=== PATIENT | male | born 1990 | race Caucasian/White ===

== ENCOUNTER 2018-02-11 13:35 | Inpatient (IN) | payer OTHER ==
[2018-02-11 13:48] VITALS: BMI 31.3
--- NOTE | 2018-02-11 14:56 | PDOC ---
History of Present Illness - General History Source: Patient Exam Limitations: No Limitations - History of Present Illness Initial Comments: 02/11/18 15:12 The patient is a 27 year old male, with a significant past medical history of cataracts, who presents to the emergency department with, rapid onset decreased vision of the right eye and total blindness of the left eye. The patient describes his symptoms as blurred vision only being able to see shapes and colors and progressively decreasing for the past two weeks. As per patient, he was diagnosed with blurred vision of the left eye and cataracts in [place] by a doctor of of an unknown name to whom informed him he needed to have surgery. As per patient, his insurance was only approved yesterday and upon calling the social service technician she advised him to come into the emergency department for further treatment. The patient has a strong family history of cataracts at a young age. He denies any injury to the eye. He denies any foreign body to the eye. He denies taking any medications or supplements. He denies a history of diabetes. He denies any recent fevers, chills, headache or dizziness. He denies any recent nausea, vomit, diarrhea or constipation. He denies any recent chest pain or shortness of breath. He denies any recent dysuria, frequency, urgency or hematuria. Allergies: NKA Past surgical history: None reported. Social History: Nonsmoker. Denies EtOH use and recreational drug use. <Nancy Gustafson - Last Filed: 02/11/18 15:36> - General History Source: Patient Exam Limitations: No Limitations <Smiley Anderson - Last Filed: 02/11/18 15:48> - General Chief Complaint: Blurry Vision Stated Complaint: EYE PROBLEM Time Seen by Provider: 02/11/18 14:09 Past History <Nancy Gustafson - Last Filed: 02/11/18 15:36> - Past Medical History COPD: No Other medical history: DENIES. - Suicide/Smoking/Psychosocial Hx Smoking History: Never smoked <Smiley Anderson - Last Filed: 02/11/18 15:48> - Past Medical History Allergies/Adverse Reactions: Allergies Allergy/AdvReac Type Severity Reaction Status Date / Time No Known Allergies Allergy Verified 02/11/18 13:44 Home Medications: Ambulatory Orders NK [No Known Home Medication] 02/11/18 Review of Systems - Review of Systems Able to Perform ROS?: Yes Comments:: 02/11/18 15:22 CONSTITUTIONAL: Absent: fever, no chills, no fatigue EYES: Present: Visual change of the right eye. ENT: Absent: ear pain, no sore throat CARDIOVASCULAR: Absent: chest pain, no palpitations RESPIRATORY: Absent: cough, no SOB GI: Absent: abdominal pain, no nausea, no vomiting, no constipation, no diarrhea GENITOURINARY: Absent: dysuria, no frequency, no hematuria MUSKULOSKELETAL: Absent: back pain, no arthralgia, no myalgia SKIN: Absent: rash NEURO: Absent: headache All Other Systems: Reviewed and Negative <Nancy Gustafson - Last Filed: 02/11/18 15:36> *Physical Exam - Vital Signs Last Vital Signs Temp Pulse Resp BP Pulse Ox 98.4 F 70 19 130/66 99 02/11/18 13:44 02/11/18 13:44 02/11/18 13:44 02/11/18 13:44 02/11/18 13:44 - Physical Exam Comments: 02/11/18 15:23 GENERAL: Well-appearing, well-nourished. No apparent distress. (+)HEENT: + Bilateral cataracts. Unable to perform visual acuity test because unable to see the chart. Normocephalic, atraumatic. CARDIOVASCULAR: Normal S1, S2. Regular rate and rhythm. PULMONARY: Clear to auscultation bilaterally. ABDOMEN: Soft, non-distended, non-tender. EXTREMITIES: Normal ROM in all four extremities. No gross deformities. SKIN: Warm, dry. No rash NEUROLOGICAL: No focal neurological deficits. <Nancy Gustafson - Last Filed: 02/11/18 15:36> - Vital Signs Last Vital Signs Temp Pulse Resp BP Pulse Ox 98.4 F 70 19 130/66 99 02/11/18 13:44 02/11/18 13:44 02/11/18 13:44 02/11/18 13:44 02/11/18 13:44 <Smiley Anderson - Last Filed: 02/11/18 15:48> Medical Decision Making - Medical Decision Making 02/11/18 15:36 2:40pm Call placed to Dr. Gil's, call person for neurology, answering service, awaiting call back. 2:51pm Call returned from Dr. Antonio, associate of Dr. Gil, case was discussed. 2:55pm Call placed to Dr. Sosa for admission, case was discussed. <Nancy Gustafson - Last Filed: 02/11/18 15:36> - Medical Decision Making 02/11/18 15:[address] Antonio from neurology who wants to admit patient to rule out medical causes of sudden blindness other than cataracts. Admit patient to [facility] service. Dr. Antonio to consult. Discussed case with Dr. Swanson, attending in the Emergency Department. Patient to be admitted for 24 -hour observation. Report to Yasmine KIM. <Smiley Anderson - Last Filed: 02/11/18 15:48> *DC/Admit/Observation/Transfer - Attestations Scribe Attestion: 02/11/18 15:35 Documentation prepared by Nancy Gustafson, acting as medical support assistant for Smiley Anderson, RUBENS. <Nancy Gustafson - Last Filed: 02/11/18 15:36> - Discharge Dispostion Admit: Yes <Smiley Anderson - Last Filed: 02/11/18 15:48> Diagnosis at time of Disposition: Blindness of both eyes - Referrals Referrals: Neil Sosa MD [Staff Physician] - Lelo Antonio MD [Staff Physician] -
--- NOTE | 2018-02-11 16:57 | HP ---
Admitting History and Physical - Primary Care Physician PCP: Neil Sosa - Admission History of Present Illness: 27 year old male, with a significant past medical history of cataracts, who presents to the emergency department with, rapid onset decreased vision of the right eye and total blindness of the left eye. The patient describes his symptoms as blurred vision only being able to see shapes and colors and progressively decreasing for the past two weeks. As per patient, he was diagnosed with blurred vision of the left eye and cataracts in [place] by a doctor of of an unknown name to whom informed him he needed to have surgery. As per patient, his insurance was only approved yesterday and upon calling the high school social studies teacher she advised him to come into the emergency department for further treatment. The patient has a strong family history of cataracts at a young age. He denies any injury to the eye. He denies any foreign body to the eye. He denies taking any medications or supplements. He denies a history of diabetes. He denies any recent fevers, chills, headache or dizziness. He denies any recent nausea, vomit, diarrhea or constipation. He denies any recent chest pain or shortness of breath. He denies any recent dysuria, frequency, urgency or hematuria. - Smoking History Smoking history: Never smoked Home Medications - Allergies Allergies/Adverse Reactions: Allergies Allergy/AdvReac Type Severity Reaction Status Date / Time No Known Allergies Allergy Verified 02/11/18 13:44 - Home Medications Home Medications: Ambulatory Orders NK [No Known Home Medication] 02/11/18 Physical Examination Vital Signs: Vital Signs Temperature 98.4 F 02/11/18 13:44 Pulse Rate 70 02/11/18 13:44 Respiratory Rate 19 02/11/18 13:44 Blood Pressure 130/66 02/11/18 13:44 O2 Sat by Pulse Oximetry (%) 99 02/11/18 13:44 HENT: Yes: Atraumatic Problem List - Problems (1) Blind right eye Code(s): H54.40 - BLINDNESS, ONE EYE, UNSPECIFIED EYE (2) Blindness of both eyes Code(s): H54.3 - UNQUALIFIED VISUAL LOSS, BOTH EYES
[2018-02-11 18:30] LABS: BASO % 0.8 % (0-2.0); EOS % 3.7 % (0-4.5); HEMATOCRIT 45.3 % (35.4-49); HEMOGLOBIN 15.3 GM/dL (11.7-16.9); MCH 30.9 pg (25.7-33.7); MCHC 33.7 g/dl (32.0-35.9); MEAN CELL VOLUME 91.8 fl (80-96); MEAN PLT VOLUME 9.3 fl (7.5-11.1); MONO % 13.2 % (3.8-10.2); NEUT % 58.3 % (42.8-82.8); PLATELET COUNT 288 K/MM3 (134-434); RBC 4.93 M/mm3 (4.00-5.60); RDW 14.1 % (11.9-15.9); WHITE BLOOD COUNT 6.5 K/mm3 (4.0-10.0)
--- NOTE | 2018-02-11 18:38 | CON.NEURO ---
Consult - History of Present Illness History of Present Illness: 27 year old male, with a significant past medical history of cataracts, who presents to the emergency department with, rapid onset decreased vision of the right eye and total blindness of the left eye. The patient describes his symptoms as blurred vision only being able to see shapes and colors and progressively decreasing for the past two weeks. As per patient, he was diagnosed with blurred vision of the left eye and cataracts in [place] by a doctor of of an unknown name to whom informed him he needed to have surgery. As per patient, his insurance was only approved yesterday and upon calling the director social she advised him to come into the emergency department for further treatment. The patient has a strong family history of cataracts at a young age. He denies any injury to the eye. He denies any foreign body to the eye. He denies taking any medications or supplements. He denies a history of diabetes. He denies any recent fevers, chills, headache or dizziness. He denies any recent nausea, vomit, diarrhea or constipation. He denies any recent chest pain or shortness of breath. He denies any recent dysuria, frequency, urgency or hematuria. - Smoking History Smoking history: Never smoked Home Medications - Allergies Allergies/Adverse Reactions: Allergies Allergy/AdvReac Type Severity Reaction Status Date / Time No Known Allergies Allergy Verified 02/11/18 13:44 - Home Medications Home Medications: Ambulatory Orders NK [No Known Home Medication] 02/11/18 Physical Exam-Neuro Vital Signs: Vital Signs Temperature 98.4 F 02/11/18 13:44 Pulse Rate 70 02/11/18 13:44 Respiratory Rate 19 02/11/18 13:44 Blood Pressure 130/66 02/11/18 13:44 O2 Sat by Pulse Oximetry (%) 99 02/11/18 13:44 Labs: CBC, BMP 02/11/18 18:01 Problem List - Problems (1) Optic neuritis Code(s): H46.9 - UNSPECIFIED OPTIC NEURITIS (2) Blindness of both eyes Code(s): H54.3 - UNQUALIFIED VISUAL LOSS, BOTH EYES
[2018-02-11 18:57] LABS: ANION GAP 5 (8-16); BLOOD UREA NITROGEN 16 mg/dL (7-18); CALCIUM 8.8 mg/dL (8.5-10.1); CHLORIDE 107 mmol/L (98-107); CO2 28 mmol/L (21-32); GLUCOSE,RANDOM 86 mg/dL (74-106); POTASSIUM 4.4 mmol/L (3.5-5.1); SODIUM 140 mmol/L (136-145)
[2018-02-11 18:59] LABS: ALK PHOS 81 U/L (45-117); BILIRUBIN,TOTAL 0.1 mg/dL (0.2-1.0); SGOT/AST 24 U/L (15-37); SGPT/ALT 40 U/L (12-78); TOT PROT 7.3 g/dl (6.4-8.2)
[2018-02-11 23:36] VITALS: BP 125/62; PULSE 68; TEMP 98.1
--- NOTE | 2018-02-12 11:09 | CON.ID ---
Consult Consult Specialty:: infectious diseases Reason for Consultation:: blurry vision left eye - History of Present Illness Chief Complaint: unable to see with left eye and blurry vision rt eye History of Present Illness: The patient is a 27 year old male, with a significant past medical history of cataracts, who presents to the emergency department with, rapid onset decreased vision of the right eye and total blindness of the left eye. The patient describes his symptoms as blurred vision only being able to see shapes and colors and progressively decreasing for the past two weeks. As per patient, he was diagnosed with blurred vision of the left eye and cataracts in [place] by a doctor of of an unknown name to whom informed him he needed to have surgery. As per patient, his insurance was only approved yesterday and upon calling the director social service she advised him to come into the emergency department for further treatment. The patient has a strong family history of cataracts at a young age. - History Source History Provided By: Patient Limitations to Obtaining History: Language Barrier - Smoking History Smoking history: Never smoked Home Medications - Allergies Allergies/Adverse Reactions: Allergies Allergy/AdvReac Type Severity Reaction Status Date / Time No Known Allergies Allergy Verified 02/11/18 13:44 - Home Medications Home Medications: Ambulatory Orders NK [No Known Home Medication] 02/11/18 Review of Systems - Review of Systems Constitutional: reports: No Symptoms Eyes: reports: Blurred Vision HENT: reports: No Symptoms Neck: reports: No Symptoms Cardiovascular: reports: No Symptoms Respiratory: reports: No Symptoms Gastrointestinal: reports: No Symptoms Genitourinary: reports: No Symptoms Musculoskeletal: reports: No Symptoms Integumentary: reports: No Symptoms Neurological: reports: No Symptoms Endocrine: reports: No Symptoms Hematology/Lymphatic: reports: No Symptoms Psychiatric: reports: No Symptoms Physical Exam Vital Signs: Vital Signs Temperature 98.1 F 02/11/18 21:45 Pulse Rate 68 02/11/18 21:45 Respiratory Rate 20 02/11/18 21:45 Blood Pressure 125/62 02/11/18 21:45 O2 Sat by Pulse Oximetry (%) 99 02/11/18 21:45 Constitutional: Yes: No Distress, Calm Eyes: Yes: Cataracts (bilateral) Cardiovascular: Yes: Regular Rate and Rhythm Respiratory: Yes: Regular, CTA Bilaterally Gastrointestinal: Yes: Normal Bowel Sounds, Soft Musculoskeletal: Yes: WNL Extremities: Yes: WNL Neurological: Yes: Alert, Oriented Psychiatric: Yes: Alert, Oriented Labs: CBC, BMP 02/11/18 18:01 02/11/18 18:01 Assessment/Plan this young patient coming in with gradual loss of vision in one eye and blurinees of vision in other eye with cataracts noted bilateral cataracts blurry vision i do not think that this is due to infectious process plan will not start any abx awaiting neurology opinion i think we should get opthalmology on board rest as per primary team
== END 2018-02-12 00:42 | disposition home or self-care (01) | DRG 82 ==
LOC: JERFT 13:35 → JERBED 15:08 → OBSVTOIN 16:57
PROVIDERS: ADMIT Internal Medicine; ATTEND Internal Medicine
DX: H54.3 Unqualified visual loss, both eyes (principal); H46.9 Unspecified optic neuritis; H26.9 Unspecified cataract
CPT/HCPCS: 36415; 80053; 85025; 99281-25; G0378